=== PATIENT | female | born 1980 | race Two or more races ===

== ENCOUNTER 2020-09-10 16:25 | Emergency (ER) | payer OTHER ==
[~2020-09-10] VITALS: Ht 157.5 cm; Wt 54.4 kg
[2020-09-10 16:37] VITALS: BP 107/63
[2020-09-10 19:27] LABS: Urine Bacteria FEW /hpf (None Seen); Urine Blood Negative /uL (Negative); Urine Mucus FEW (None Seen); Urine Specific Gravity 1.022 (1.001-1.035); Urine WBC 60 /hpf (0 - 5)
[2020-09-10 19:40] LABS: Alcohol, Urine < 3.0 mg/dL (0-10); Amphetamine Screen, Urine NEGATIVE (NEGATIVE); Barbiturate Scree,Urine NEGATIVE (NEGATIVE); Benzodiazephine Screen, Urine NEGATIVE (NEGATIVE); Cannabinoid Screen, Urine NEGATIVE (NEGATIVE); Cocaine Screen, Urine NEGATIVE (NEGATIVE); Opiate Scree,Urine NEGATIVE (NEGATIVE); Phencyclidine Screen, Urine NEGATIVE (NEGATIVE)
== END 2020-09-10 19:00 | disposition left against medical advice (07) ==
LOC: ER 16:25
DX: K29.70 Gastritis, unspecified, without bleeding (principal); N39.0 Urinary tract infection, site not specified; R51.9 Headache, unspecified; Z30.430 Encounter for insertion of intrauterine contraceptive device; D73.89 Other diseases of spleen
CPT/HCPCS: 70450; 71046; 74176; 80307; 81001; 93005